=== PATIENT | male | born 2005 | race Caucasian/White ===

== ENCOUNTER 2025-02-24 23:02 | Emergency (ER) | payer MEDICAID, SELFPAY ==
[2025-02-24 23:03] VITALS: BMI 23.5
[2025-02-24 23:51] VITALS: BP 133/82; PULSE 77; RESP 18; TEMP 37.1; O2SAT 99
--- NOTE | 2025-02-25 00:12 | PD.EDURI ---
Upper Respiratory Inf. RME/HPI General Chief Complaint: Flu Like Symptoms Stated Complaint: COUGH, SOB Time Seen by Provider: 02/25/25 00:05 Arrival date/time: 02/24/25 23:02 19M with history of asthma presents to ED with 2 days of cough and some SOB. Limitations: no limitations Related Data Allergies Allergy/AdvReac Type Severity Reaction Status Date / Time No Known Allergies Allergy Verified 02/24/25 23:05 Review of Systems Review of Systems Systems Reviewed: All systems reviewed, normal except as documented Cardiovascular Cardiovascular: Reports dyspnea Respiratory Respiratory: Reports as per HPI, Reports cough and Reports dyspnea Past Medical History Social History SMOKING STATUS: Never smoker ED Exam General Limitations: Present no limitations General appearance: Present alert and in no apparent distress Head Head exam: Present atraumatic ENT ENT exam: Present normal exam, normal oropharynx and mucous membranes moist Neck Neck exam: Present normal inspection, full ROM and trachea midline Chest Chest inspection: Present normal inspection and symmetric chest wall rise Respiratory Respiratory exam: Present normal lung sounds bilaterally and prolonged expiratory phase (mild) Extremities Exam Extremities exam: Present normal inspection and full ROM Neurological Exam Neurological exam: Present alert and oriented X3 Psychiatric Psychiatric exam: Present normal affect and normal mood Skin Skin exam: Present warm, dry, intact and normal color Course Quality Measures none Orders Category Date Time Status Bedside COVID-19 Antigen Test NOW Care 02/24/25 23:08 Active Bedside Influenza A&B Antigen Test NOW Care 02/24/25 23:08 Completed Dexamethasone Inj [Decadron Inj] Med 02/25/25 00:06 Once 10 mg PO X1 ONE Vital Signs Vital signs: Vital Signs Temperature 98.7 F 02/24/25 23:51 Pulse Rate 77 02/24/25 23:51 Respiratory Rate 18 02/24/25 23:51 Blood Pressure 133/82 H 02/24/25 23:51 Pulse Oximetry (%) 99 02/24/25 23:51 Oxygen Delivery Method Room Air 02/24/25 23:51 O2 at 99% on RA and WNLs Upper Respiratory Infection MDM Narrative MDM Narrative:: 19M with history of asthma presents to ED with 2 days of cough and some SOB. Physical exam reveals clear oropharynx and lungs. Normal WOB. Mildly prolonged expiration. Patient is afebrile, calm, and alert. Swabs neg. Meds and counseling program leader given. Patient data External records reviewed:: None Clinical information provided by:: patient Social determinants that could affect healthcare access:: none Patient has the following chronic illnesses:: asthma How is presenting disease/condition affected by chronic disease/condition?: exacerbated by Evaluation data The following diagnostics were reviewed and interpreted by me:: lab results Lab and/or radiology exams considered but not ordered:: ordered Interpretation Summary: above Medications / Prescriptions Medications or Prescriptions considered but not ordered:: ordered Medication administrations:: Medication Administration History Dexamethasone Sodium Phosphate (Dexamethasone Sod Phos Inj 10 Mg/Ml Vial) 10 mg PO X1 ONE Stop: 02/25/25 00:07 above Consultations Consultation(s) initiated? (list below): No Diagnosis Upper Respiratory Differential Diagnosis: upper respiratory infection, croup, otitis media, sinusitis, viral infection, bronchitis, influenza and pharyngitis Most likely diagnosis given after review of the tests above:: URI Admission Indicated Admission indicated?: not indicated Admission Request Was there a request for admission?: No Disposition Plan Disposition Plan: Discharge Discharge Attestation Discharge Attestation: The patient and all family members were given an opportunity to ask questions and understood the discharge instructions. Discharge instructions specifically effects, indications for sooner follow up or return to the emergency department, and the expected course of current diagnosis. Patient condition: Stable Discharge Plan Plan Patient Disposition: HOME (Self Care) Discharge Disposition comment: Stable Problem List Clinical Impression: Upper respiratory infection Patient/Caregiver Discharge Instructions Education Materials: ED URI, Viral, No Abx (Adult) Additional Instructions: Please follow-up with PCP within 24-48 hours and return immediately if symptoms worsen. Ibuprofen/Tylenol can be used simultaneously for greater fever/pain control. Benadryl is good for cough, congestion, and sleep. Print Language: Jordanian Stand Alone Forms: Patient Portal Info Letter PA/DIRECTOR SERVICE Supervising Physician ABEL/VICKY Supervising Physician: Dr. Ackerman
[2025-02-25] MEDS: DEXAMETHASONE SOD PHOS INJ 4 MG/ML VIAL 10 MG PO (00:25)
== END 2025-02-25 00:28 | disposition home or self-care (01) ==
PROVIDERS: Emergency Provider Emergency Medicine; PCP Physician Assistant
DX: J06.9 Acute upper respiratory infection, unspecified (principal)
CPT/HCPCS: 87400; 87811; 99283; J1100